=== PATIENT | male | born 1955 | race Hispanic/Latino ===

== ENCOUNTER 2021-01-26 17:42 | Emergency (ER) | payer MEDICARE, OTHER ==
[~2021-01-26] VITALS: Ht 180.3 cm; Wt 102.1 kg
--- NOTE | 2021-01-26 17:45 | NUR ---
ATTEMPTED TO BRING PATIENT BACK TO ROOM THIS NURSE WHEN TO WAITING ROOM WITH A WHEELCHAIR TO BRING PATIENT BACK TO ROOM THREE BUT THE PATIENT WAS LEAVING THE ER. REGISTRATION STATES, "THE SHELLEY WHO DROVE THE PATIENT TO THE HOSPITAL DEMANDED MONEY FROM THE PATIENT FOR THE RIDE UP TO THE HOSPITAL. THE PATIENT STATED HE WOULD PAY AFTER THE ER VISIT. THE PERSON GIVING THE RIDE DEMANDED THE MONEY IMMEDIATELY. THE PATIENT AND THE PERSON WHO GAVE HIM A RIDE LEFT TO GO TO THE MARK BUT THE PATIENT SAID HE WOULD RETURN SHORTLY." PATIENT WAS OUT OF ER DOORS BEFORE THIS NURSE COULD MAKE AN ASSESSMENT.
[2021-01-26] MEDS ORDERED: NORCO 10MG PO STA (18:43)
[2021-01-26] MEDS ORDERED: VANCOMYCIN HCL 1.5 GM in NS 250ML 300 ML IV STA (18:43)
--- NOTE | 2021-01-26 18:50 | ER.PDOC ---
General Chief Complaint: Requesting Medical Care Stated Complaint: SWELLING IN HANDS/FEET/PAIN RIGHT HIP/BACK Time seen by MD: 19:00 Source: patient Exam Limitations: no limitations History of Present Illness Timing/Duration: 1 week Severity: moderate Location: RLE Quality: painful Identified Cause: yes Exposure: infectious illiness Allergies: Coded Allergies: nifedipine (Verified Allergy, Severe, Nausea, 01/26/21) tramadol (Verified Allergy, Severe, Hives, 01/26/21) Past Medical History Medical History: diabetes Reviewed Nursing Reviewed: Vital Signs, Abn. Noted All Other Systems: Reviewed and Negative Physical Exam General Appearance: alert, no distress Skin: tender indurated area, with erythema, with lymphangitis, lesion Location: RLE, LLE Character: symmetric With: warmth, tenderness, swelling, induration, thickening, inflammation Extremities: edema, ROM limited by pain EENT: eyes nml inspection, lips/gums nml, pharynx nml Neck: trachea midline, no swelling Respiratory: no resp. distress, breath sounds nml CVS: reg. rate & rhythm, heart sounds nml Abdomen: non-tender, no organomegaly NEURO/PSYCH: oriented x 3, CN's nml as tested, motor nml, sensation nml, mood/affect nml Results/Orders Results/Orders Orders - JAE CEBALLOS MD 0.9 % Sodium Chloride (Ns 1000ml) (01/26/21 19:30) Urinalysis (01/26/21 19:10) 0.9 % Sodium Chloride (Ns 250ml) (01/26/21 19:14) Vancomycin Hcl (Vancomycin Hcl) (01/26/21 19:14) Hydrocodone/Acetaminophen ([place] 10mg) (01/26/21 19:15) Insulin Regular, Human (Humulin R) (01/26/21 19:44) 0.9 % Sodium Chloride (Ns 1000ml) (01/26/21 19:50) Insulin Regular, Human (Humulin R) (01/26/21 19:50) Gabapentin (Neurontin) (01/26/21 19:53) 0.9 % Sodium Chloride (Ns 1000ml) (01/26/21 20:00) 0.9 % Sodium Chloride (Ns 1000ml) (01/26/21 20:03) Insulin Regular, Human (Humulin R) (01/26/21 21:38) Insulin Regular, Human (Humulin R) (01/26/21 22:00) Insulin Glargine,Hum.Rec.Anlog (Lantus) (01/26/21 21:40) Insulin Glargine,Hum.Rec.Anlog (Lantus) (01/26/21 21:45) Vital Signs Date Time Temp Pulse Resp B/P (MAP) Pulse Ox O2 Delivery O2 Flow Rate FiO2 01/26/21 19:11 98.5 88 16 141/77 (98) 100 Room Air 01/26/21 18:56 98.5 88 16 141/77 (98) 100 Room Air 01/26/21 18:56 98.5 88 16 100 01/26/21 18:56 98.5 88 16 Administered Medications Medications (Trade) Dose Ordered Sig/Justin Route PRN Reason Start Time Stop Time Status Last Admin Dose Admin Acetaminophen/ Hydrocodone Bitart ([place] 10mg) 1 each STAT STAT PO 01/26/21 18:43 01/26/21 18:49 DC 01/26/21 19:47 1 EACH Gabapentin (Neurontin) 600 mg STAT STAT PO 01/26/21 19:53 01/26/21 19:54 UNV 01/26/21 20:12 600 MG Insulin Glargine (Lantus) 40 unit STAT STAT SQ 01/26/21 21:40 01/26/21 21:43 DC 01/26/21 21:50 40 UNIT Insulin Human Regular (Humulin R) 10 unit OT ONCE IV 01/26/21 22:00 01/26/21 22:01 DC 01/26/21 21:44 10 UNIT Insulin Human Regular (Humulin R) 10 unit OT STAT IV 01/26/21 19:44 01/26/21 19:45 DC 01/26/21 19:48 10 UNIT Sodium Chloride 1,000 ml @ 0 mls/hr Q0M ONCE IV 01/26/21 19:30 01/26/21 19:31 DC 01/26/21 19:48 1,200 MLS/HR Sodium Chloride 1,000 ml @ 0 mls/hr Q0M ONCE IV 01/26/21 20:00 01/26/21 20:01 DC 01/26/21 20:12 1,200 MLS/HR Vancomycin HCl 1.5 gm/Sodium Chloride 300 ml @ 175 mls/hr STAT STAT IV 01/26/21 18:43 01/26/21 20:25 DC 01/26/21 19:47 175 MLS/HR Laboratory Tests Test 01/26/21 18:55 01/26/21 19:27 White Blood Count 10.7 10^3/uL (4.5-11.0) Red Blood Count 4.53 10^6/uL (4.50-5.90) Hemoglobin 13.7 g/dL (13.9-16.3) L Hematocrit 40.7 % (37.0-53.0) Mean Corpuscular Volume 89.8 fL (78-100) Mean Corpuscular Hemoglobin 30.2 pg (26-34) Mean Corpuscular Hemoglobin Concent 33.7 g/dL (33-36.5) Red Cell Distribution Width 13.9 % (11.5-14.5) Platelet Count 205 10^3/uL (150-400) Mean Platelet Volume 10.4 fL (7.8-11.0) Neutrophils (%) (Auto) 75.1 % (41.0-85.0) Lymphocytes (%) (Auto) 17.9 % (24.0-44.0) L Monocytes (%) (Auto) 6.4 % (5.0-12.0) Neutrophils # (Auto) 8.0 10^3/uL (1.8-7.7) H Lymphocytes # (Auto) 1.92 10^3/uL1 (1.0-4.8) Monocytes # (Auto) 0.7 10^3/uL (0.3-0.8) Absolute Immature Granulocyte (auto 0.01 10^3 u/L (0-2) Absolute Eosinophils (auto) 0.0 10^3/uL (0.0-0.2) Immature Granulocytes % 0.10 % (0.00-0.50) Eosinophils % 0.3 % (0.0-5.0) Basophils % 0.2 % (0.0-0.2) Basophils # 0.0 10^3/uL (0.0-0.1) Erythrocyte Sedimentation Rate 58 mm/hr (0-20) H Prothrombin Time 10.7 SEC (9.6-12.0) Prothrombin Time INR (Non-Therap) 1.0 Activated Partial Thromboplast Time 24.1 SEC (24.67-30.72) Sodium Level 134 mmol/L (132-145) Potassium Level 3.7 mmol/L (3.6-5.2) Chloride Level 100.0 mmol/L (96-109) Carbon Dioxide Level 24.9 mmol/L (20.0-32) Anion Gap 12.8 Blood Urea Nitrogen 12 mg/dL (7-18) Creatinine 0.99 mg/dL (0.59-1.40) Estimated GFR () 91.2 (>/=60) Est GFR (CKD-EPI)(Non-Afr [place]) 75.4 (>/=60) BUN/Creatinine Ratio 12.0 Glucose Level 605 mg/dL (70-110) *H Calcium Level 7.8 mg/dL (8.4-10.5) L Total Bilirubin 0.4 mg/dL (0.2-1.0) Aspartate Amino Transferase (AST) 15 U/L (0-35) Alanine Aminotransferase (ALT) 16 U/L (12-78) Alkaline Phosphatase 118 U/L (50-136) Total Creatine Kinase 144 U/L (39-308) Creatine Kinase MB 1.7 ng/mL (0.5-3.6) Troponin I < 0.02 ng/mL (0.00-0.05) C-Reactive Protein 3.66 mg/dL (0.00-5.00) Pro-B-Type Natriuretic Peptide 844 pg/mL (0-125) H Total Protein 7.1 g/dL (6.4-8.2) Albumin 2.5 g/dL (3.4-5.0) L Globulin 4.6 Albumin/Globulin Ratio 0.543 Urine Collection Type UNKNOWN Urine Color YELLOW Urine Appearance CLEAR Urine Bilirubin NEGATIVE (NEGATIVE) Urine Ketones NEGATIVE (NEGATIVE) Urine Specific [place] <=1.005 (1.005-1.030) Urine pH 5.5 (4.5-8.0) Urine Protein 30 mg/dL (NEGATIVE) H Urine Urobilinogen 0.2 E.U./dL (0.2) Urine Nitrate NEGATIVE (NEGATIVE) Urine Leukocyte Esterase NEGATIVE (NEGATIVE) Urine Glucose (Auto)(UA) 500 (NEGATIVE) H Urine Blood MODERATE (NEGATIVE) H Urine RBC 2-5 RBC/HPF (NONE SEEN) Urine WBC 0-2 WBC/HPF (0-2) Urine Squamous Epithelial Cells RARE #/HPF (FEW) Urine Bacteria NONE SEEN (NONE SEEN) Progress Progress TO DR CEBALLOS---- had discussion with pt that his labs are checking out ok other than his blood sugar and that the xray shows no infection in the bones. Also let him know that when the blood sugar comes down some that we will be sending him home since there are no admission requirements met. We will prescribe abx and other medications for diabetes and have him establish care with a pcp for continued maintenance of chronic conditions. Repeat blood sugar came back around 250 and pt is ready to go home. he is requesting fill of his normal medication. ER DEPART Departure Time of Disposition: 21:57 Disposition: 01 HOME, SELF-CARE Impression: Primary Impression: Hyperglycemia due to type 2 diabetes mellitus Additional Impressions: Cellulitis of foot, right Diabetic neuropathy associated with type 2 diabetes mellitus Hypertension Condition: Improved Referrals: PCP,UNKNOWN (PCP) PRIMARY CARE PROVIDER Duration or Time Spent with Pa: 45 Problem Qualifiers ALCIIA VOGEL MD Jan 26, 2021 18:50 JAE CEBALLOS MD Jan 26, 2021 22:04
[2021-01-26 18:56] VITALS: BP_SYST 141; BP_SYST 172; BP_DIAS 77; BP_DIAS 79
--- NOTE | 2021-01-26 19:02 | PCM.EKG ---
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
[2021-01-26 19:10] LABS: BASOPHIL % 0.2 % (0.0-0.2); EOSINOPHIL % 0.3 % (0.0-5.0); LYMPHOCYTES # 1.92 10^3/uL1 (1.0-4.8); LYMPHOCYTES % 17.9 % (24.0-44.0); MEAN CORP HGB 30.2 pg (26-34); MONOCYTES # 0.7 10^3/uL (0.3-0.8); MONOCYTES % 6.4 % (5.0-12.0); NEUTROPHILS % 75.1 % (41.0-85.0); PLATELET COUNT 205 10^3/uL (150-400); RED CELL DISTRIBUTION WIDTH 13.9 % (11.5-14.5)
[2021-01-26 19:11] VITALS: BP 141/77
--- NOTE | 2021-01-26 19:11 | DIREP ---
PROCEDURE:XRAY FOOT MIN 3 VWS-RT COMPARISON:None. INDICATIONS:Osteomyelitis FINDINGS: BONES:There is been amputation of the 1st toe through the level of the distal aspect of the proximal phalanx. There are no areas of cortical destruction to suggest osteomyelitis. A metal plate is present along the lateral aspect of the distal fibular shaft. Metal screws are present in the medial malleolus of the distal tibia. There are no acute fractures. JOINTS:Normal. SOFT TISSUES:Normal. OTHER:No additional findings. CONCLUSION:Prior amputation of the right 1st toe. No radiographic findings suggestive of osteomyelitis. Dictated by: Franklyn Hurtado M.D. on 01/26/2021 at 07:07 PM
[2021-01-26] MEDS ORDERED: VANCOMYCIN HCL 2 GM ONE (19:14)
[2021-01-26] MEDS ORDERED: NS 250ML 250 ML IV ONE (19:14)
[2021-01-26] MEDS ORDERED: NORCO 10MG PO ONE (19:15)
[2021-01-26 19:30] LABS: ALANINE AMINOTRANSFERASE(ML) 16 U/L (12-78); ALKALINE PHOSPHATASE 118 U/L (50-136); ASPARTATE AMINO TRANSFERASE 15 U/L (0-35); CALCIUM 7.8 mg/dL (8.4-10.5); CARBON DIOXIDE 24.9 mmol/L (20.0-32)
[2021-01-26] MEDS ORDERED: NS 1000ML 1,000 ML IV ONE ×2 (19:30→20:00)
[2021-01-26 19:37] LABS: GLUCOSE 605 mg/dL (70-110)
[2021-01-26] MEDS ORDERED: HUMULIN R IV STA (19:44)
[2021-01-26] MEDS ORDERED: HUMULIN R ONE ×2 (19:50→21:38)
[2021-01-26] MEDS ORDERED: NS 1000ML 1,000 ML ONE ×2 (19:50→20:03)
[2021-01-26] MEDS ORDERED: NEURONTIN PO STA (19:53)
[2021-01-26 19:57] LABS: BILIRUBIN,URINE NEGATIVE (NEGATIVE); UA COLOR YELLOW
[2021-01-26 19:58] LABS: UROBILINOGEN,URINE 0.2 E.U./dL (0.2)
[2021-01-26 20:00] VITALS: BP 138/82
[2021-01-26] MEDS ORDERED: NEURONTIN ONE (20:03)
[2021-01-26 21:00] VITALS: BP 140/76
[2021-01-26] MEDS ORDERED: LANTUS SQ STA (21:40)
[2021-01-26] MEDS ORDERED: LANTUS SQ ONE (21:45)
[2021-01-26 22:00] VITALS: BP 151/83
[2021-01-26] MEDS ORDERED: HUMULIN R IV ONE (22:00)
[2021-01-26 23:00] VITALS: BP 149/76
== END 2021-01-26 23:19 | disposition home or self-care (01) ==
LOC: ER 17:42
DX: E11.40 Type 2 diabetes mellitus with diabetic neuropathy, unspecified (principal); E11.65 Type 2 diabetes mellitus with hyperglycemia; I10 Essential (primary) hypertension; L03.115 Cellulitis of right lower limb; Z79.4 Long term (current) use of insulin; Z79.899 Other long term (current) drug therapy; Z88.5 Allergy status to narcotic agent; Z88.8 Allergy status to other drugs, medicaments and biological substances
CPT/HCPCS: 36415; 73630; 80053; 81000; 81003; 82550; 82553; 82948; 83880; 84484; 85025; 85610; 85651; 85730; 86140; 93005; 96365; 96372; 96375; 96376; 99285; J1815 ×3; J3370 ×2; J7030 ×2; J7050 ×2; 96374

== ENCOUNTER 2021-01-27 02:51 | Emergency (ER) | payer MEDICARE, OTHER ==
[~2021-01-27] VITALS: Ht 180.3 cm; Wt 102.1 kg
[2021-01-27 02:54] VITALS: BP 147/76
--- NOTE | 2021-01-27 03:07 | NUR ---
ARRIVAL PATIENT ARRIVED TO ED3 VIA EMS. AMBULATORY FROM STRETCHER TO ED BED. STATES HE WAS WALKING BACK TO [place] AND HIS FEET NOW HURT. DR. CEBALLOS AT BEDSIDE TO SPEAK TO PATIENT. SPOKE WITH MEDICAL CLAIMS REPRESENTATIVE, ONE BED AVAILABLE FOR ADMISSION. DR. CEBALLOS TO SPEAK WITH HOSPITALIST REGARDING OBS ADMISSION.
--- NOTE | 2021-01-27 03:09 | NUR ---
EMS BLOOD GLUCOSE 399 PER EMS.
[2021-01-27] MEDS ORDERED: MORPHINE SULFATE ONE (03:12)
[2021-01-27] MEDS ORDERED: NS 1000ML 1,000 ML ONE (03:12)
[2021-01-27] MEDS ORDERED: MORPHINE SULFATE IV STA (03:20)
--- NOTE | 2021-01-27 03:20 | ER.PDOC ---
General Chief Complaint: Extremities Stated Complaint: FOOT PAIN Time seen by MD: 03:00 Source: patient Exam Limitations: no limitations History of Present Illness Initial Comments pt seen earlier last night with foot pain. found to have cellulitis and T2DM out of control with blood sugar at 605. was given dose of vanc and blood cultures taken. blood sugars controlled down to 250 and was discharged. did not want to leave and was sleeping. is homeless. later this am 911 was called 2/2 foot pain and he had been walking since d/c and could not tolerate the pain and brought by ems. Timing/Duration: constant, changing over time Severity: severe Quality: painful, burning Identified Cause: yes Allergies: Coded Allergies: nifedipine (Verified Allergy, Severe, Nausea, 01/26/21) tramadol (Verified Allergy, Severe, Hives, 01/26/21) Past Medical History Medical History: cardiac problems, diabetes (neuropathy), hypertension Surgical History: coronary bypass surgery, other (bltrl toe amputations) Social History Alcohol Use: none Drug Use: none Constitutional: no symptoms reported Genitourinary: frequency Musculoskeletal: muscle pain, other (Feet pain) Skin: change in color, other (cellulitis) All Other Systems: Reviewed and Negative Physical Exam General Appearance: alert, mild distress Skin: other (R foot with redness, warmth, swelling, ttp. L foot with ttp) Location: RLE Character: erythematous With: warmth, tenderness, swelling Extremities: edema EENT: eyes nml inspection, lips/gums nml, pharynx nml Neck: trachea midline, no swelling Respiratory: no resp. distress, breath sounds nml CVS: reg. rate & rhythm, heart sounds nml Abdomen: non-tender, no organomegaly Results/Orders Results/Orders Orders - JAE CEBALLOS MD 0.9 % Sodium Chloride (Ns 1000ml) (01/27/21 03:12) Morphine Sulfate (Morphine Sulfate) (01/27/21 03:12) Morphine Sulfate (Morphine Sulfate) (01/27/21 03:20) 0.9 % Sodium Chloride (Ns 1000ml) (01/27/21 03:30) Insulin Regular, Human (Humulin R) (01/27/21 03:29) Vital Signs Date Time Temp Pulse Resp B/P (MAP) Pulse Ox O2 Delivery O2 Flow Rate FiO2 01/27/21 02:54 98.6 102 20 98 01/27/21 02:54 98.6 102 20 01/27/21 02:54 98.6 102 20 147/76 (99) 98 Room Air Administered Medications Medications (Trade) Dose Ordered Sig/Justin Route PRN Reason Start Time Stop Time Status Last Admin Dose Admin Morphine Sulfate (Morphine Sulfate) 4 mg STAT STAT IV 01/27/21 03:20 01/27/21 03:21 UNV 01/27/21 03:24 4 MG Sodium Chloride 1,000 ml @ 150 mls/hr Q6H40M ONCE IV 01/27/21 03:30 01/27/21 10:09 01/27/21 03:28 150 MLS/HR Progress Progress it is apparent that pt is unable to manage his cellulitis on his own at this time and is a candidate for admission for cellulitis and social issues from being homeless. no beds available here so will send to [facility]. pt prefers [facility]. I have called the transfer center and they have accepted. ER DEPART Departure Time of Disposition: 03:41 Disposition: 02 XFER SHT-TRM HOSP Impression: Primary Impression: Cellulitis Additional Impressions: Hyperglycemia due to type 2 diabetes mellitus Diabetic neuropathy associated with type 2 diabetes mellitus Homeless Condition: Stable Referrals: PCP,UNKNOWN (PCP) PRIMARY CARE PROVIDER Duration or Time Spent with Pa: 10 Problem Qualifiers JAE CEBALLOS MD Jan 27, 2021 03:20
--- NOTE | 2021-01-27 03:25 | NUR ---
URINE PATIENT STATED HE NEED TO "PEE" EXPLAINED THAT THERE WERE NO MORE URINALS AND HE WOULD HAVE TO BE TAKEN TO RESTROOM. PATIENT REFUSED STATING "I'LL JUST PEE IN THE BED." EXPLAINED THAT HE COULD BE TAKEN IN THE WHEELCHAIR TO THE RESTROOM, PATIENT STATED, "I DO NOT WANT TO GET OUT BED."
--- NOTE | 2021-01-27 03:25 | NUR ---
PAIN PATIENT MOANING REPEATEDLY DUE TO PAIN IN FEET. ADMINISTERED MORPHINE ORDERED.
[2021-01-27] MEDS ORDERED: HUMULIN R IV STA (03:29)
[2021-01-27] MEDS ORDERED: NS 1000ML 1,000 ML IV ONE (03:30)
--- NOTE | 2021-01-27 03:30 | NUR ---
TRANSFER EXPLAINED TO PATIENT THAT HE NEEDS TO BE ADMITTED. REQUESTING TO GO TO [facility].
--- NOTE | 2021-01-27 03:33 | NUR ---
[facility] DR. CEBALLOS ON THE PHONE WITH TRANSFER CENTER. AUTO ACCEPT TO [facility] BY DR. RUIZ. PATIENT INFORMED.
[2021-01-27] MEDS ORDERED: HUMULIN R ONE (03:36)
--- NOTE | 2021-01-27 03:55 | NUR ---
[facility] CALLED FOR TRANSFER TO [facility]
--- NOTE | 2021-01-27 04:07 | NUR ---
COVID RESULTS ARE NEGATIVE. DR. CEBALLOS NOTIFIED.
[2021-01-27] MEDS ORDERED: NORCO 10MG PO STA (04:08)
[2021-01-27] MEDS ORDERED: NORCO 10MG PO ONE (04:09)
--- NOTE | 2021-01-27 04:10 | NUR ---
EMS REPORT GIVEN TO JASPREET WOLFF
--- NOTE | 2021-01-27 04:15 | NUR ---
EMS DEPARTED FROM UNIT. REPORT CALLED TO [facility], SPOKE WITH ANTONIETA HILL
== END 2021-01-27 04:15 | disposition short-term general hospital (02) ==
LOC: EDBD 02:51 → ER 02:51
DX: E11.40 Type 2 diabetes mellitus with diabetic neuropathy, unspecified (principal); E11.65 Type 2 diabetes mellitus with hyperglycemia; L03.115 Cellulitis of right lower limb; I10 Essential (primary) hypertension; Z20.822 Contact with and (suspected) exposure to COVID-19; Z59.0 Homelessness; Z88.5 Allergy status to narcotic agent; Z88.8 Allergy status to other drugs, medicaments and biological substances
CPT/HCPCS: 87426; 96361; 96374; 96375; 99285; J1815; J2270; J7030